=== PATIENT | female | born 1950 ===

== ENCOUNTER 2024-09-15 05:12 | Day surgery (SDC) | payer OTHER ==
[~2024-09-15 05:12] MED LIST: CEFAZOLIN SODIUM 1,000 MG VIAL ONE; METFORMIN HCL500 M3 PO; SIMVASTATIN20 MG PO; TOPROL XL50 M1 PO; XELPROS2.5 ML OP; ZESTRIL5 MG PO
[2024-09-15] MEDS ORDERED: GENTAMICIN SULFATE 40 MG/ML VIAL ONE (09:38)
[2024-09-15] MEDS ORDERED: CEFAZOLIN SODIUM 1,000 MG VIAL IV SCH (10:30)
[2024-09-15] MEDS ORDERED: MACROBID 100 M100 MG PO (11:36)
[2024-09-15] MEDS ORDERED: TRAM1TAB98 PO (11:36)
== END 2024-09-15 15:05 | disposition home or self-care (01) ==
LOC: CIR.AMB 05:12
PROVIDERS: ATTEND Obstetrics & Gynecology Gynecology
DX: N81.5 Vaginal enterocele (principal); N81.6 Rectocele; N81.82 Incompetence or weakening of pubocervical tissue; N81.83 Incompetence or weakening of rectovaginal tissue; Z53.8 Procedure and treatment not carried out for other reasons; I10 Essential (primary) hypertension; E11.9 Type 2 diabetes mellitus without complications; E03.8 Other specified hypothyroidism